=== PATIENT | female | born 1945 | race Caucasian/White ===

== ENCOUNTER 2016-08-02 13:50 | Inpatient (IN) | payer OTHER ==
[~2016-08-02] VITALS: Ht 160 cm; Wt 70.5 kg
[~2016-08-02 13:50] MED LIST: AMBIEN CR6.25 MG PO; ANTI-DIARRHEA2 MG PO; ATARAX,VISTARIL25 M1 PO; ATARAX,VISTARIL25 MG PO; CALCIUM CARB1 TABLET PO; CELEBREX200 MG PO; COUMADIN,JANTO2.5 MG PO; Coumadin,Jantoven PO; DYAZIDE, MA1 CAPSULE PO; Dyazide, Maxzide 37. PO; K-DUR10 ME2 PO; K-DUR20 MEQ PO; KLOR-CON 1010 ME1 PO; KONSYL0.52 GM PO; LO-DOSE ASPIRIN81 M1 PO; LOVAZA1 GM PO; Levothroid,Synthroid PO; METOCLOPRAMIDE10 MG PO; MINIPRIN81 MG PO; MIRALAX, GLYCO255 G1 PO; NAPROSYN500 MG PO; NORVASC5 MG PO; NOVOLOG PE100 UNITS/ SC; NYSTATIN15 GM TP; Norvasc PO; PANTOPRAZOLE SO40 MG PO; PREDNISONE20 MG PO; PSYLLIUM0.4 GM PO; SYNTHROID100 MCG PO; SYNTHROID112 MCG PO; TYLENOL EXTRA500 MG PO; Tylenol Extra Streng PO; ULTRAM50 MG PO; VALIUM5 MG PO; VANCOMYCIN HCL1 GM PO; VITAMIN B12 100MCG PO; VITAMIN D2000 INTUN PO; VITAMIN D32000 UNI1 PO; Vicodin,Lortab 5/500 PO; Vitamin B-12 PO; Vitamin D PO; ZOCOR20 MG PO; Zocor PO; [UNRECOGNIZED DRUG - OTHER] PO
[2016-08-02 15:14] LABS: HEMATOCRIT 31.8 % (36.0-46.0); MCH 30.5 PG (29.0-34.0); MCV 92.4 FL (83-99); MEAN PLAT.VOLUME 8.1 uM^3 (9.5-12.4); RBC DIS.WIDTH-CV 17.9 % (11.8-14.6); WHITE BLOOD COUNT 8.4 K/uL (4.1-10.2)
[2016-08-02 15:23] LABS: EOSINOPHIL (%) 0 % (0-5); IMMATURE GRANULOCYTE (%) 0.7 % (0.0-0.7); IMMATURE GRANULOCYTE COUNT 0.6 K/uL; LYMPHOCYTE COUNT 1.3 K/uL (1.0-2.8); MONOCYTE (%) 9.4 % (3-12); MONOCYTE COUNT 0.8 K/uL (0-0.8); NEUTROPHIL (%) 73.7 % (45-76); NEUTROPHIL COUNT 6.2 K/uL (1.8-6.4)
[2016-08-02 15:26] LABS: CHLORIDE 101 mEq/L (99-109); POTASSIUM 3.6 mEq/L (3.7-5.4); SODIUM 134 mEq/L (136-147)
[2016-08-02 15:27] LABS: GLUCOSE 118 mg/dL (70-99); PLATELET COUNT 330 K/uL (156-360); RED BLOOD COUNT 3.44 M/uL (3.80-5.20)
[2016-08-02 15:29] LABS: ANION GAP 7 MEQ/L (2-14)
[2016-08-02 15:31] LABS: GFR ESTIMATE (CALCULATED) > 59 mL/min/
[2016-08-02 15:32] LABS: UREA NITROGEN (BUN) 9 mg/dL (9-23)
[2016-08-02 15:37] LABS: TROP-I INTERPRETATION NEGATIVE; TROPONIN-I < 0.01 ng/mL (0.0-0.30)
[2016-08-02 15:37] LABS: ADD MIUA? YES; BILIRUBIN NEGATIVE; BLOOD NEGATIVE; COLOR YELLOW ((YELLOW)); GLUCOSE (STRIP) NEGATIVE; KETONES NEGATIVE; LEUKOCYTES MODERATE; NITRITE NEGATIVE; PH, URINE 7.5 (5-8); PROTEIN (STRIP) NEGATIVE; SPECIFIC GRAVITY 1.005 (1.000-1.030); UROBILINOGEN 0.2 MG/DL (0.2-1.0)
[2016-08-02 16:42] LABS: RED BLOOD CELLS NONE SEEN /HPF (0-5)
[2016-08-02 16:43] LABS: BACTERIA 2+; CASTS NONE SEEN /LPF; CRYSTALS NONE SEEN; EPITHELIAL CELLS 1+; MUCUS NONE SEEN; UCUL ADDED? YES
[2016-08-02] MEDS ORDERED: AMBIEN CR12.5 MG PO (17:57)
[2016-08-02] MEDS ORDERED: LIPITOR20 MG PO (18:00)
[2016-08-02] MEDS ORDERED: LEVO-T200 MCG PO (18:01)
[2016-08-02] MEDS ORDERED: ONDANSETRON ODT4 MG PO (18:01)
[2016-08-02] MEDS ORDERED: LOSARTAN POTAS100 MG PO (18:01)
[2016-08-02] MEDS ORDERED: METOPROLOL TART25 MG PO (18:01)
[2016-08-02] MEDS ORDERED: ANTI-DIARRHEA2 MG PO (18:02)
[2016-08-02 19:15] VITALS: BP 110/56
[2016-08-02 23:55] VITALS: BP 98/55
[2016-08-03 02:45] VITALS: BP 111/55
[2016-08-03 07:20] LABS: HEMATOCRIT 29.6 % (36.0-46.0); MCH 31.1 PG (29.0-34.0); MCHC 33.8 G/DL (30.0-36.0); MCV 91.9 FL (83-99); MEAN PLAT.VOLUME 8.2 uM^3 (9.5-12.4); PLATELET COUNT 272 K/uL (156-360); RBC DIS.WIDTH-CV 18.3 % (11.8-14.6); RBC DIS.WIDTH-SD 61.2 % (39-53); RED BLOOD COUNT 3.22 M/uL (3.80-5.20); WHITE BLOOD COUNT 6.5 K/uL (4.1-10.2)
[2016-08-03 07:22] LABS: BASOPHIL COUNT 0.1 K/uL (0-0.1); EOSINOPHIL COUNT 0.1 K/uL (0-0.3); IMMATURE GRANULOCYTE (%) 1.1 % (0.0-0.7); IMMATURE GRANULOCYTE COUNT 0.1 K/uL; LYMPHOCYTE COUNT 2.6 K/uL (1.0-2.8); MONOCYTE (%) 10.4 % (3-12); MONOCYTE COUNT 0.7 K/uL (0-0.8); NEUTROPHIL COUNT 2.9 K/uL (1.8-6.4)
[2016-08-03 07:49] LABS: ANION GAP 5 MEQ/L (2-14); CHLORIDE 108 MEQ/L (99-109); GFR ESTIMATE (CALCULATED) > 59 mL/min/; POTASSIUM 3.5 MEQ/L (3.7-5.4); SAMPLE HEMOLYSIS CHECK 1; SAMPLE ICTERIC CHECK 0; SAMPLE LIPEMIA CHECK 0; SODIUM 137 MEQ/L (136-147); UREA NITROGEN (BUN) 7 mg/dL (9-23)
[2016-08-03 07:52] LABS: GLUCOSE 78 mg/dL (70-99)
[2016-08-03 08:00] VITALS: BP 106/58
[2016-08-03 17:17] VITALS: BP 121/61
[2016-08-03 20:01] VITALS: BP 106/58
[2016-08-04 00:13] VITALS: BP 125/60
[2016-08-04 03:57] VITALS: BP 113/62
[2016-08-04 05:46] LABS: HEMATOCRIT 30.5 % (36.0-46.0); MCHC 33.1 G/DL (30.0-36.0); MCV 93.6 FL (83-99); MEAN PLAT.VOLUME 8.4 uM^3 (9.5-12.4); PLATELET COUNT 270 K/uL (156-360); RBC DIS.WIDTH-CV 18.5 % (11.8-14.6); RBC DIS.WIDTH-SD 63.1 % (39-53); RED BLOOD COUNT 3.26 M/uL (3.80-5.20); WHITE BLOOD COUNT 5.4 K/uL (4.1-10.2)
[2016-08-04 06:04] LABS: BASOPHIL COUNT 0.1 K/uL (0-0.1); EOSINOPHIL COUNT 0.2 K/uL (0-0.3); IMMATURE GRANULOCYTE (%) 1.3 % (0.0-0.7); IMMATURE GRANULOCYTE COUNT 0.1 K/uL; LYMPHOCYTE COUNT 2.7 K/uL (1.0-2.8); MONOCYTE (%) 12.4 % (3-12); MONOCYTE COUNT 0.7 K/uL (0-0.8); NEUTROPHIL (%) 32.4 % (45-76); NEUTROPHIL COUNT 1.8 K/uL (1.8-6.4)
[2016-08-04 06:10] VITALS: BP 139/70
[2016-08-04 06:14] LABS: ALKALINE PHOSPHATASE 73 IU/L (3-129); ANION GAP 4 MEQ/L (2-14); CHLORIDE 111 MEQ/L (99-109); GFR ESTIMATE (CALCULATED) > 59 mL/min/; GLUCOSE 78 mg/dL (70-99); POTASSIUM 3.5 MEQ/L (3.7-5.4); SAMPLE HEMOLYSIS CHECK 0; SAMPLE ICTERIC CHECK 0; SAMPLE LIPEMIA CHECK 0; SODIUM 140 MEQ/L (136-147); TOTAL BILIRUBIN 0.5 MG/DL (0.0-1.0); UREA NITROGEN (BUN) 4 mg/dL (9-23)
[2016-08-04 08:46] LABS: HEMATOLOGY COMMENT 1 SMEAR COMPATIBLE; USER ID LYM
[2016-08-04 15:28] VITALS: BP 134/68
[2016-08-04 23:51] VITALS: BP 127/77
[2016-08-05 05:50] LABS: HEMATOCRIT 30.7 % (36.0-46.0); MCH 31.4 PG (29.0-34.0); MCHC 33.2 G/DL (30.0-36.0); MCV 94.5 FL (83-99); MEAN PLAT.VOLUME 8.4 uM^3 (9.5-12.4); PLATELET COUNT 285 K/uL (156-360); RBC DIS.WIDTH-CV 18.7 % (11.8-14.6); RBC DIS.WIDTH-SD 64.6 % (39-53); RED BLOOD COUNT 3.25 M/uL (3.80-5.20)
[2016-08-05 05:58] LABS: BASOPHIL COUNT 0.1 K/uL (0-0.1); EOSINOPHIL COUNT 0.2 K/uL (0-0.3); IMMATURE GRANULOCYTE COUNT 0.1 K/uL; LYMPHOCYTE COUNT 2.7 K/uL (1.0-2.8); MONOCYTE (%) 10.2 % (3-12); MONOCYTE COUNT 0.6 K/uL (0-0.8); NEUTROPHIL (%) 40.3 % (45-76); NEUTROPHIL COUNT 2.4 K/uL (1.8-6.4)
[2016-08-05 06:11] LABS: ANION GAP 4 MEQ/L (2-14); CHLORIDE 111 MEQ/L (99-109); GFR ESTIMATE (CALCULATED) > 59 mL/min/; GLUCOSE 84 mg/dL (70-99); SAMPLE HEMOLYSIS CHECK 0; SAMPLE ICTERIC CHECK 0; SAMPLE LIPEMIA CHECK 0; SODIUM 140 MEQ/L (136-147); UREA NITROGEN (BUN) 3 mg/dL (9-23)
[2016-08-05 07:24] VITALS: BP 118/63
[2016-08-05 15:38] VITALS: BP 119/58
[2016-08-05 19:18] VITALS: BP 122/70
[2016-08-05 23:23] VITALS: BP 119/66
[2016-08-06 07:10] LABS: HEMATOCRIT 33.2 % (36.0-46.0); MCH 31.2 PG (29.0-34.0); MCHC 32.8 G/DL (30.0-36.0); MCV 95.1 FL (83-99); MEAN PLAT.VOLUME 8.2 uM^3 (9.5-12.4); PLATELET COUNT 292 K/uL (156-360); RBC DIS.WIDTH-SD 65.9 % (39-53); RED BLOOD COUNT 3.49 M/uL (3.80-5.20); WHITE BLOOD COUNT 5.5 K/uL (4.1-10.2)
[2016-08-06 07:19] LABS: BASOPHIL COUNT 0.1 K/uL (0-0.1); EOSINOPHIL (%) 3.3 % (0-5); EOSINOPHIL COUNT 0.2 K/uL (0-0.3); IMMATURE GRANULOCYTE (%) 0.5 % (0.0-0.7); LYMPHOCYTE COUNT 2.6 K/uL (1.0-2.8); MONOCYTE COUNT 0.6 K/uL (0-0.8); NEUTROPHIL (%) 35.7 % (45-76)
[2016-08-06 07:35] LABS: ANION GAP 5 MEQ/L (2-14); CHLORIDE 108 MEQ/L (99-109); GFR ESTIMATE (CALCULATED) > 59 mL/min/; GLUCOSE 81 mg/dL (70-99); POTASSIUM 4.1 MEQ/L (3.7-5.4); SAMPLE HEMOLYSIS CHECK 0; SAMPLE ICTERIC CHECK 0; SAMPLE LIPEMIA CHECK 0; SODIUM 141 MEQ/L (136-147); UREA NITROGEN (BUN) 3 mg/dL (9-23)
[2016-08-06 08:16] VITALS: BP 120/73
[2016-08-06 15:00] LABS: C DIFF TOXIN NEGATIVE (NEGATIVE)
[2016-08-06 15:02] LABS: PROBE CHECK PASS; SPECIMEN PROCESSING CONTROL PASS
[2016-08-06 15:53] VITALS: BP 120/60
[2016-08-07 00:20] VITALS: BP 121/56
[2016-08-07 07:12] LABS: HEMATOCRIT 31.7 % (36.0-46.0); MCH 31.8 PG (29.0-34.0); MCHC 33.4 G/DL (30.0-36.0); MCV 95.2 FL (83-99); MEAN PLAT.VOLUME 8.4 uM^3 (9.5-12.4); PLATELET COUNT 280 K/uL (156-360); RBC DIS.WIDTH-SD 65.7 % (39-53); RED BLOOD COUNT 3.33 M/uL (3.80-5.20)
[2016-08-07 07:41] LABS: ANION GAP 5 MEQ/L (2-14); CHLORIDE 106 MEQ/L (99-109); GFR ESTIMATE (CALCULATED) > 59 mL/min/; GLUCOSE 81 mg/dL (70-99); SAMPLE HEMOLYSIS CHECK 0; SAMPLE ICTERIC CHECK 0; SAMPLE LIPEMIA CHECK 0; SODIUM 140 MEQ/L (136-147); UREA NITROGEN (BUN) 4 mg/dL (9-23)
[2016-08-07 08:00] LABS: EOSINOPHIL COUNT 0.2 K/uL (0-0.3); IMMATURE GRANULOCYTE (%) 0.5 % (0.0-0.7); LYMPHOCYTE COUNT 2.8 K/uL (1.0-2.8); MONOCYTE (%) 12.6 % (3-12); MONOCYTE COUNT 0.8 K/uL (0-0.8); NEUTROPHIL (%) 36.5 % (45-76); NEUTROPHIL COUNT 2.2 K/uL (1.8-6.4)
[2016-08-07 08:04] VITALS: BP 144/75
[2016-08-07 11:36] VITALS: BP 124/68
[2016-08-07 16:32] VITALS: BP 140/76
[2016-08-07 23:47] VITALS: BP 139/75
[2016-08-08 06:58] VITALS: BP 135/70
[2016-08-08] MEDS ORDERED: FAMOTIDINE20 MG PO (07:02)
[2016-08-08] MEDS ORDERED: CEFTIN500 MG PO (07:02)
[2016-08-08] MEDS ORDERED: MIRTAZAPINE15 MG PO (07:02)
[2016-08-08 08:38] LABS: ANION GAP 5 MEQ/L (2-14); CHLORIDE 104 MEQ/L (99-109); GFR ESTIMATE (CALCULATED) > 59 mL/min/; GLUCOSE 77 mg/dL (70-99); SAMPLE HEMOLYSIS CHECK 0; SAMPLE ICTERIC CHECK 0; SAMPLE LIPEMIA CHECK 0; SODIUM 138 MEQ/L (136-147); UREA NITROGEN (BUN) 4 mg/dL (9-23)
[2016-08-08 08:54] LABS: MCH 31.5 PG (29.0-34.0); MCHC 33.1 G/DL (30.0-36.0); MCV 95.2 FL (83-99); MEAN PLAT.VOLUME 8.8 uM^3 (9.5-12.4); PLATELET COUNT 307 K/uL (156-360); RBC DIS.WIDTH-CV 18.5 % (11.8-14.6); RBC DIS.WIDTH-SD 63.6 % (39-53); RED BLOOD COUNT 3.36 M/uL (3.80-5.20); WHITE BLOOD COUNT 5.7 K/uL (4.1-10.2)
[2016-08-08 09:11] LABS: BASOPHIL COUNT 0.1 K/uL (0-0.1); EOSINOPHIL (%) 3.5 % (0-5); EOSINOPHIL COUNT 0.2 K/uL (0-0.3); IMMATURE GRANULOCYTE (%) 0.4 % (0.0-0.7); LYMPHOCYTE COUNT 2.4 K/uL (1.0-2.8); MONOCYTE (%) 14.1 % (3-12); MONOCYTE COUNT 0.8 K/uL (0-0.8); NEUTROPHIL (%) 38.1 % (45-76); NEUTROPHIL COUNT 2.2 K/uL (1.8-6.4)
== END 2016-08-08 11:36 | disposition home or self-care (01) | DRG 315 ==
LOC: EME → EDBD 13:50 → 2EAST 18:12 → EDOF 18:12 → 2EAST 19:04
PROVIDERS: Emergency Medicine; Internal Medicine; Internal Medicine Gastroenterology
DX: I95.9 Hypotension, unspecified (principal); N39.0 Urinary tract infection, site not specified; E87.1 Hypo-osmolality and hyponatremia; R13.10 Dysphagia, unspecified; F32.9 Major depressive disorder, single episode, unspecified; E87.6 Hypokalemia; E03.9 Hypothyroidism, unspecified; D64.9 Anemia, unspecified; E78.5 Hyperlipidemia, unspecified; G47.00 Insomnia, unspecified; B96.1 Klebsiella pneumoniae [K. pneumoniae] as the cause of diseases classified elsewhere
CPT/HCPCS: 71010; 74220; 80048; 80053; 81003; 82533 91; 84439; 84443; 84484; 85025; 85027; 87077; 87086; 87186; 87493; 92610 GN; 93005; 97530 GP; 99281; 99285; J0696; J1650; J3480; J7030; J7050

== ENCOUNTER 2017-01-11 20:05 | Day surgery (SDC) | payer OTHER ==
[~2017-01-11] VITALS: Ht 160 cm; Wt 85.6 kg
[~2017-01-11 20:05] MED LIST changes: +AMBIEN CR12.5 MG PO; +CEFTIN500 MG PO; +FAMOTIDINE20 MG PO; +LEVO-T200 MCG PO; +LIPITOR20 MG PO; +LOSARTAN POTAS100 MG PO; +METOPROLOL TART25 MG PO; +MIRTAZAPINE15 MG PO; +ONDANSETRON ODT4 MG PO
[2017-01-11 21:07] LABS: HEMATOCRIT 42.5 % (36.0-46.0); MCHC 32.9 G/DL (30.0-36.0); MCV 94.2 FL (83-99); MEAN PLAT.VOLUME 8.9 uM^3 (9.5-12.4); PLATELET COUNT 322 K/uL (156-360); RBC DIS.WIDTH-CV 13.4 % (11.8-14.6); RBC DIS.WIDTH-SD 46.6 % (39-53); RED BLOOD COUNT 4.51 M/uL (3.80-5.20); WHITE BLOOD COUNT 8.8 K/uL (4.1-10.2)
[2017-01-11 21:17] LABS: CHLORIDE 106 mEq/L (99-109); POTASSIUM 4.4 mEq/L (3.7-5.4); SODIUM 143 mEq/L (136-147)
[2017-01-11 21:20] LABS: GLUCOSE 115 mg/dL (70-99)
[2017-01-11 21:21] LABS: ANION GAP 12 MEQ/L (2-14)
[2017-01-11 21:22] LABS: TOTAL BILIRUBIN 3.1 mg/dL (0.0-1.0)
[2017-01-11 21:23] LABS: ALKALINE PHOSPHATASE 171 IU/L (3-129)
[2017-01-11 21:24] LABS: GFR ESTIMATE (CALCULATED) > 59 mL/min/
[2017-01-11 21:25] LABS: UREA NITROGEN (BUN) 21 mg/dL (9-23)
[2017-01-11 21:27] LABS: LIPASE 13 U/L (1.0-51.0)
[2017-01-12] LABS: TROP-I INTERPRETATION NEGATIVE; TROPONIN-I < 0.01 ng/mL (0.0-0.30)
[2017-01-12 12:15] VITALS: BP 120/62
[2017-01-12] MEDS ORDERED: KLOR-CON 1010 ME1 PO (14:42)
[2017-01-12] MEDS ORDERED: LEVO-T175 MCG PO (14:43)
[2017-01-12] MEDS ORDERED: SILENOR3 MG PO (14:47)
[2017-01-12 15:35] LABS: ANION GAP 8 MEQ/L (2-14); CHLORIDE 108 MEQ/L (99-109); SAMPLE HEMOLYSIS CHECK 0; SAMPLE ICTERIC CHECK 0; SAMPLE LIPEMIA CHECK 0; SODIUM 141 MEQ/L (136-147)
[2017-01-12 15:41] LABS: GFR ESTIMATE (CALCULATED) > 59 mL/min/; GLUCOSE 107 mg/dL (70-99); UREA NITROGEN (BUN) 21 mg/dL (9-23)
[2017-01-12 15:44] LABS: POTASSIUM 3.5 MEQ/L (3.7-5.4)
== END 2017-01-12 18:15 | disposition home or self-care (01) ==
LOC: EME 20:05 → 2EAST 01-12 01:24 → SDC 01-12 01:24 → 2SOUTH 01-12 05:00 → 2EAST 01-12 12:19
PROVIDERS: Internal Medicine
DX: T18.128A Food in esophagus causing other injury, initial encounter (principal); K22.2 Esophageal obstruction; I10 Essential (primary) hypertension; R79.89 Other specified abnormal findings of blood chemistry; R11.2 Nausea with vomiting, unspecified; R19.7 Diarrhea, unspecified; E78.5 Hyperlipidemia, unspecified; E03.9 Hypothyroidism, unspecified
CPT/HCPCS: 70360; 71010; 74220; 80048; 80053; 81003; 83690; 84484; 85027; 88305; 93005; 99281; 99285; C9113; G0378; J0330; J1644; J2250; J2405; J3010; J7030

== ENCOUNTER 2017-01-16 04:51 | Emergency (ER) | payer OTHER ==
[~2017-01-16] VITALS: Ht 160 cm; Wt 79.8 kg
[~2017-01-16 04:51] MED LIST changes: +LEVO-T175 MCG PO; +SILENOR3 MG PO
[2017-01-16 07:42] VITALS: BP 140/83
== END 2017-01-16 07:43 | disposition home or self-care (01) ==
LOC: EME 04:51
DX: S60.416A Abrasion of right little finger, initial encounter (principal); W22.8XXA Striking against or struck by other objects, initial encounter; Z79.82 Long term (current) use of aspirin
CPT/HCPCS: 73130; 99281; 99284